=== PATIENT | male | born 1950 | race Caucasian/White ===

== ENCOUNTER → 2017-10-01 | Outpatient (CLI) | payer BC ==
[2017-10-01] VITALS (9 sets, daily range): BP systolic 101–131; BP diastolic 70–91; PULSE 72–82
[~2017-10-01] VITALS: Ht 177.8 cm; Wt 87.5 kg
[~2017-10-01] MED LIST: ATIVAN 0.50.5 MG/TAB PO; D3-5050000 IU PO; K FORCE; LINSEED OIL 1 ML1 ML PO; NO HOME MEDICATIONS; PILOCARPINE 2%; TURMERIC500 MG PO; TYLENOL ELIX32 MG/M2 PO; UROCIT-K 5540 MG/TAB PO; VITAMIN K2 PO; [UNRECOGNIZED DRUG - OTHER] PO; [UNRECOGNIZED DRUG - OTHER] PO
== END ==
LOC: COL.RAD 12:37
DX: N28.1 Cyst of kidney, acquired (principal)
CPT/HCPCS: 27584

== ENCOUNTER → 2018-02-25 | Outpatient (CLI) | payer BC ==
[~2018-02-25] VITALS: Ht 177.8 cm; Wt 86.4 kg
[2018-02-25] VITALS (9 sets, daily range): BP systolic 111–129; BP diastolic 69–78; PULSE 72–85
[~2018-02-25] MED LIST changes: +NORCO 325 MG-51 TAB PO
== END ==
LOC: COL.RAD 12:33
DX: N28.1 Cyst of kidney, acquired (principal)

== ENCOUNTER → 2021-12-07 | Outpatient (CLI) | payer BC, MEDICARE ==
[~2021-12-07] VITALS: Ht 177.8 cm; Wt 81.4 kg
[~2021-12-07] MED LIST changes: +K2-4545 MCG PO; +PHARMASSURE ZIN50 MG PO; +VITAMINC1000TA PO; +VITAMIND3 5000 PO; +ZYRTEC 10MG10 MG PO
[2021-12-07 12:17] VITALS: BP 133/87; PULSE 92; TEMP 97.3
[2021-12-07 13:35] VITALS: BP 139/88; PULSE 83
[2021-12-07 14:02] LABS: PLEURAL FLUID RBC 7000 /mm3 (0-0); PLEURAL FLUID WBC 269 /mm3
[2021-12-07 15:11] LABS: PLEURAL FLUID APPEARANCE HAZY; PLEURAL FLUID COLOR YELLOW
== END ==
LOC: COL.RAD 11:41
PROVIDERS: Internal Medicine
DX: J90 Pleural effusion, not elsewhere classified (principal)
CPT/HCPCS: 19804

== ENCOUNTER → 2022-01-15 | Outpatient (CLI) | payer BC ==
[~2022-01-15] VITALS: Ht 177.8 cm; Wt 78.2 kg
[2022-01-15 06:48] VITALS: BP 111/74; PULSE 88
[2022-01-15 08:10] VITALS: BP 104/69; PULSE 76
[2022-01-15 08:33] LABS: PLEURAL FLUID APPEARANCE CLEAR; PLEURAL FLUID COLOR YELLOW; PLEURAL FLUID RBC 3000 /mm3 (0-0); PLEURAL FLUID WBC 118 /mm3
== END ==
LOC: COL.RAD 06:20
PROVIDERS: Internal Medicine
DX: C10.9 Malignant neoplasm of oropharynx, unspecified (principal); J90 Pleural effusion, not elsewhere classified
CPT/HCPCS: 19804

== ENCOUNTER → 2022-02-23 | Outpatient (CLI) | payer BC ==
[~2022-02-23] MED LIST changes: +ASPIRIN 32325 MG/TAB PO; +MUCINEX 60600 MG/TA1 PO; +ROXICODONE 55 MG/TAB PO
== END ==
LOC: COL.RAD 10:15
DX: R13.10 Dysphagia, unspecified (principal); Z90.49 Acquired absence of other specified parts of digestive tract

== ENCOUNTER → 2022-03-15 | Outpatient (CLI) | payer BC ==
[~2022-03-15] VITALS: Ht 177.8 cm; Wt 65.0 kg
[2022-03-15 08:13] VITALS: BP 73/45; PULSE 109; TEMP 98.7
[2022-03-15 09:30] VITALS: BP 97/64; PULSE 80
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
== END ==
LOC: COL.RAD 07:53
DX: J93.9 Pneumothorax, unspecified (principal); J90 Pleural effusion, not elsewhere classified; C76.0 Malignant neoplasm of head, face and neck; Z98.890 Other specified postprocedural states

== ENCOUNTER → 2022-05-08 | Outpatient (CLI) | payer BC | LOC: MHCPAIN 12:03 | DX: M47.896 Other spondylosis, lumbar region (principal); M53.3 Sacrococcygeal disorders, not elsewhere classified; M54.16 Radiculopathy, lumbar region | CPT/HCPCS: G0463 ==

== ENCOUNTER → 2022-05-14 | Outpatient (CLI) | payer BC | LOC: MHCPAIN 12:45 | DX: M47.816 Spondylosis without myelopathy or radiculopathy, lumbar region (principal); M53.3 Sacrococcygeal disorders, not elsewhere classified; M54.16 Radiculopathy, lumbar region | CPT/HCPCS: J1100; Q9967 ==

== ENCOUNTER → 2022-06-05 | Outpatient (CLI) | payer BC | LOC: MHCPAIN 13:49 | DX: M54.50 Low back pain, unspecified (principal); M47.816 Spondylosis without myelopathy or radiculopathy, lumbar region; M53.3 Sacrococcygeal disorders, not elsewhere classified; M54.16 Radiculopathy, lumbar region | CPT/HCPCS: G0463 ==

== ENCOUNTER → 2022-07-16 | Outpatient (CLI) | payer BC | LOC: MHCPAIN 10:07 | DX: M47.816 Spondylosis without myelopathy or radiculopathy, lumbar region (principal); M54.16 Radiculopathy, lumbar region; M53.3 Sacrococcygeal disorders, not elsewhere classified | CPT/HCPCS: G0463; J1100; Q9967 ==

== ENCOUNTER → 2022-08-15 | Outpatient (CLI) | payer BC | LOC: MHCPAIN 12:35 | DX: M25.562 Pain in left knee (principal); M79.2 Neuralgia and neuritis, unspecified; G83.14 Monoplegia of lower limb affecting left nondominant side; Z92.3 Personal history of irradiation; Z85.810 Personal history of malignant neoplasm of tongue | CPT/HCPCS: G0463 ==